=== PATIENT | female | born 1990 | race American Indian/Alaskan Native ===

== ENCOUNTER 2021-01-17 13:36 | Outpatient (CLI) | payer OTHER ==
[2021-01-17 18:01] VITALS: BP 133/66
== END 2021-01-17 17:01 | disposition home or self-care (01) ==
LOC: LAB 13:36 → APU 16:04 → LAB 17:01
PROVIDERS: ATTEND Obstetrics & Gynecology
DX: O26.893 Other specified pregnancy related conditions, third trimester (principal); Z67.41 Type O blood, Rh negative; Z3A.28 28 weeks gestation of pregnancy
CPT/HCPCS: 59025; 86850; 86900; 86901; 96372; J2790

== ENCOUNTER 2021-03-23 19:11 | Inpatient (IN) | payer OTHER ==
[2021-03-23] MEDS ORDERED: FAMOTIDINE 20 MG/2 ML INJ IV SCH (20:41)
[2021-03-23] MEDS ORDERED: METOCLOPRAMIDE 10 MG/2 ML INJ IV SCH (20:41)
[2021-03-23] MEDS ORDERED: BICITRA ORAL LIQD 30ML PO SCH (20:41)
[2021-03-23] MEDS ORDERED: LACTATED RINGERS 1,000 ML IV SCH (20:45)
[2021-03-23] MEDS ORDERED: TERBUTALINE 1 MG/1 ML INJ SUB-Q ONE (21:00)
[2021-03-23] MEDS ORDERED: OXYTOCIN DRIP 30 UNITS/500 ML BAG IV SCH ×2 (21:00→23:45)
[2021-03-23] MEDS ORDERED: ceFAZolin/Water 2 GM/20 ML 2 GM/20 ML SYRINGE IV NR (21:00)
[2021-03-23 21:01] LABS: Basophils % (Auto) 0.5 % (0.0-1.8); Eosinophils # (Auto) 0.1 K/mm3 (0.0-0.4); Eosinophils % (Auto) 1.3 % (0.0-4.3); Hematocrit 35.4 % (30.3-42.9); Hemoglobin 11.9 gm/dl (10.1-14.3); Lymphocytes # (Auto) 1.7 K/mm3 (1.2-5.4); Lymphocytes % (Auto) 21.7 % (13.4-35.0); Mean Corpuscular HGB Conc 34 % (30-34); Mean Corpuscular Volume 89 fl (79-97); Monocytes # (Auto) 0.9 K/mm3 (0.0-0.8); Monocytes % (Auto) 11.7 % (0.0-7.3); Platelet Count 175 K/mm3 (140-440); Red Blood Count 3.99 M/mm3 (3.65-5.03); Red Cell Distribution Width 14.5 % (13.2-15.2)
[2021-03-23 21:04] LABS: Amphetamine Screen,Urine Negative; Benzodiazepines Screen,Urine Negative; Cannabinoid Screen,Urine Negative; Cocaine Screen,Urine Negative; Methadone Screen,Urine Negative; Opiate Screen,Urine Negative
--- NOTE | 2021-03-23 21:09 | Anesthesia Day of Surgery ---
Anesthesia Day of Surgery - Day of Surgery Patient Examined: Yes Patient H&P Reviewed: Yes Patient is NPO: No (Dr Pavon wishes to preceed secondary to thick meconium. Last meal 1900) Beta Blockers: No Cardiac Clearance: No Pulmonary Clearance: No Benja's Test: Negative
--- NOTE | 2021-03-23 21:12 | Anesthesia Consultation ---
Anesthesia Consult and Med Hx Date of service: 03/23/21 - Airway Anesthetic Teeth Evaluation: Good ROM Head & Neck: Adequate Mental/Hyoid Distance: Adequate Mallampati Class: Class II Intubation Access Assessment: Probably Good - Pulmonary Exam CTA: Yes - Cardiac Exam Cardiac Exam: RRR - Pre-Operative Health Status ASA Pre-Surgery Classification: ASA3, Emergency Proposed Anesthetic Plan: Spinal - Pulmonary Hx Smoking: No Hx Asthma: No Hx Respiratory Symptoms: No SOB: No COPD: No Home Oxygen Therapy: No Hx Pneumonia: No Hx Sleep Apnea: No - Cardiovascular System Hx Hypertension: No Hx Coronary Artery Disease: No Hx Heart Attack/AMI: No Hx Angina: No Hx Percutaneous Transluminal Coronary Angioplasty (PTCA): No Hx Cardia Arrhythmia: No Hx Pacemaker: No Hx Internal Defibrillator: No Hx Valvular Heart Disease: No Hx Heart Murmur: No Hx Peripheral Vascular Disease: No - Central Nervous System Hx Neuromuscular Disorder: No Hx Seizures: No CVA: No Hx Back Pain: Yes Hx Psychiatric Problems: No - Gastrointestinal Hx Ulcer: No Hx Gastroesophageal Reflux Disease: Yes - Endocrine Hx Renal Disease: No Hx End Stage Renal Disease: No Hx Cirrhosis: No Hx Liver Disease: No Hx Insulin Dependent Diabetes: No Hx Non-Insulin Dependent Diabetes: Yes (gestational on metformin) Hx Thyroid Disease: No Hx Hypothyroidism: No Hx Hyperthyroidism: No - Hematic Hx Anemia: No Hx Sickle Cell Disease: No - Other Systems Hx Alcohol Use: No Hx Substance Use: No Hx Cancer: No Hx Obesity: Yes
[2021-03-23] MEDS ORDERED: NALOXONE 0.4 MG/1 ML INJ IV PRN ×2 (21:15→23:41)
[2021-03-23] MEDS ORDERED: ONDANSETRON 4 MG/2 ML INJ IV PRN (21:15)
[2021-03-23] MEDS ORDERED: HYDROmorphone 1 MG/1 ML INJ IV PRN ×2 (21:15)
[2021-03-23] MEDS ORDERED: ONDANSETRON 4 MG/2 ML INJ IV ONE (22:06)
[2021-03-23] MEDS ORDERED: PHENYLEPHRINE/NS 1,000 MCG/10 ML SYRINGE (OR USE) IV ONE (22:24)
[2021-03-23] MEDS ORDERED: SODIUM CHLORIDE 0.9% 500 ML 500 ML ONE (22:31)
[2021-03-23] MEDS: KETOROLAC 30 MG/1 ML INJ IV PRN (23:00)
[2021-03-23] MEDS ORDERED: KETOROLAC 30 MG/1 ML INJ ONE (23:00)
[2021-03-23] MEDS ORDERED: SODIUM CHLORIDE 0.9% 500 ML IVPB IV ONE (23:15)
--- NOTE | 2021-03-23 23:33 | History and Physical Report ---
History of Present Illness Date of examination: 03/23/21 Date of admission: 03/23/21 19:11 Chief complaint: My water broke History of present illness: Patient is a 30-year-old 3 para 2 with history of previous section who presents with spontaneous ruptured membranes at 37 weeks and 2 days. Her EDC is 04/11/2021. Amniotic fluid is filled with meconium. The patient's course was complicated by gestational diabetes poorly controlled. Her GBS is unknown. She is HSV-2 positive. Patient initiated care in the first trimester. To the record patient had only moderate compliance with checking her blood sugars after the diagnosis of gestational diabetes, however she met the criteria for it Past History Past Medical History: no pertinent history Past Surgical History: section Family/Genetic History: none Social history: - Obstetrical History Expected Date of Delivery: 04/11/21 Actual Gestation: 37 Week(s) 2 Day(s) : 5 Para: 2 Spontaneous Abortions: 2 Number of Living Children: 2 Medications and Allergies Allergies Allergy/AdvReac Type Severity Reaction Status Date / Time No Known Allergies Allergy Unverified 01/17/21 13:39 Home Medications Medication Instructions Recorded Confirmed Last Taken Type Valacyclovir HCl [Valtrex] 1,000 mg PO DAILY 03/23/21 03/23/21 Unknown History metFORMIN XR [Glucophage XR] 500 mg PO BID 03/23/21 03/23/21 Unknown History Active Meds: Active Medications Citric Acid/Sodium Citrate (Bicitra Oral Liqd 30ml) 30 ml PO ONCE SHANTANU Stop: 03/24/21 20:40 Famotidine (Famotidine 20 Mg/2 Ml Inj) 20 mg IV ONCE SHANTANU Stop: 03/24/21 20:40 Hydromorphone HCl (Hydromorphone 1 Mg/1 Ml Inj) 0.5 mg IV Q5M PRN PRN Reason: BREAK Stop: 03/24/21 05:34 Hydromorphone HCl (Hydromorphone 1 Mg/1 Ml Inj) 0.5 mg IV Q4H PRN PRN Reason: breakthrough pain > 7/10 Lactated Ringer's (Lactated Ringers) 1,000 mls @ 2,250 mls/hr IV PREOP SHANTANU Stop: 03/24/21 21:12 Oxytocin/Sodium Chloride (Pitocin/Ns 30 Unit/500ml) 30 units in 500 mls @ 0 mls/hr IV TITR SHANTANU; Protocol Cefazolin Sodium (Ancef/Sterile Water 2 Gm/20 Ml) 2 gm in 20 mls @ 80 mls/hr IV PREOP NR; Protocol Stop: 03/24/21 20:59 Metoclopramide HCl (Metoclopramide 10 Mg/2 Ml Inj) 10 mg IV ONCE SHANTANU Stop: 03/24/21 20:40 Naloxone HCl (Naloxone 0.4 Mg/1 Ml Inj) 0.2 mg IV Q2MIN PRN PRN Reason: Res Rate </= 8 or 02 SAT < 92% Ondansetron HCl (Ondansetron 4 Mg/2 Ml Inj) 4 mg IV Q8H PRN PRN Reason: Nausea And Vomiting Sodium Chloride (Sodium Chloride 0.9% 10 Ml Flush Syringe) 10 ml IV PRN NR Stop: 03/24/21 21:59 Review of Systems All systems: negative Genitourinary: leakage of fluid, pelvic pain, contractions - Vital Signs Vital signs: Vital Signs Pulse BP 85 121/70 03/23/21 19:36 03/23/21 19:36 Temp Pulse Resp BP Pulse Ox 99.5 F 85 12 121/70 03/23/21 19:37 03/23/21 19:37 03/23/21 19:37 03/23/21 19:36 - Physical Exam Breasts: Cardiovascular: Regular rate, Normal S1, Normal S2 Lungs: Positive: Clear to auscultation, Normal air movement Abdomen: Positive: normal appearance, soft, normal bowel sounds. Negative: distention, tenderness Genitourinary (Female): Positive: normal external genitalia, normal perenium Vulva: both: normal Vagina: Positive: normal moisture. Negative: discharge Cervix: Negative: lesion, discharge Uterus: Positive: normal size, normal contour Adnexa: both: normal Anus/Rectum: Positive: normal perianal skin, heme negative. Negative: rectal mass, hemorrhoids Extremities: Deep Tendon Reflex Grade: Normal +2 - Obstetrical FHR: auscultation normal Cervical Dilatation: 2 Cervical Effacement Percentage: 50 station: -2 Uterine Contraction Pattern: Regular Uterine Tone Measurement Phase: Contraction Uterine Contraction Intensity: Mild Results Result Diagrams: 03/23/21 20:30 Abnormal lab results 07/25/21 Range/Units 20:30 [place] % (Auto) 11.7 H (0.0-7.3) % [place] # (Auto) 0.9 H (0.0-0.8) K/mm3 All other labs normal. Assessment and Plan IUP at 37-2/7 weeks with spontaneous rupture of membrane and previous section. Plan for repeat section. Consent signed and placed on chart. Will proceed as above
--- NOTE | 2021-03-23 23:38 | Procedure Note ---
OB Delivery Note - Delivery Date of Delivery: 03/23/21 Surgeon: AMAYA TRINH - Section Preop diagnosis: repeat Postop diagnosis: same section procedure: repeat low transverse Disposition: PACU Complications: none Narrative: See op report - Infant A at 1 minute: 8 at 5 minutes: 9 Infant Gender: Female (3320g 7lbs 5 oz)
[2021-03-23] MEDS ORDERED: SIMETHICONE 80 MG CHEW TAB PO PRN (23:41)
[2021-03-23] MEDS ORDERED: MORPHINE 2 MG/1 ML INJ IV PRN (23:41)
[2021-03-23] MEDS ORDERED: WITCH HAZEL/ GLYCERIN PAD TP PRN (23:41)
[2021-03-23] MEDS ORDERED: LANOLIN/ZINC/DIMETHICONE (LANSINOH) 7 GM TP PRN (23:41)
--- NOTE | 2021-03-23 23:41 | Operative Report ---
Operative Report Operative Report: Preoperative diagnosis: Intrauterine at 37 and 2 7 weeks 2. Previous x1 3. Spontaneous rupture of membranes with meconium Postoperative diagnosis: Same Procedure: Repeat low transverse section Surgeon: Dr. Maribell Pavon EBL: 625 Urine output: 350 mL IV fluids: 1600 mL Findings: Viable female in the vertex presentation weight 7 lbs. 5 oz. 3320g Apgars 8 and 9. Thin lower uterine segment with several venous si nuses, otherwise normal pelvic anatomy Specimens: Placenta Complications: None Procedure: The patient was admitted to the OR with IV running and in place. She was properly identified as herself. She was given spinal anesthesia in the OR without difficulty. She was placed in the dorsal supine position with a leftward tilt. A Aviles catheter was inserted. She was then prepped and draped in the normal sterile fashion. An Allis test was used to confirm adequate anesthesia. Once confirmed, the incision was made with the scalpel and carried to the underlying fascia using the scalpel and the Bovie. The fascia was incised in the midline and incision was extended bilaterally using the curved Lorenz scissors. The fascia was then dissected from the underlying rectus muscles in a series of sharp and blunt dissection using the Lorenz scissors. Muscles were in the in the midline sharply using Metzenbaum scissors and the peritoneum was entered into bluntly using the surgeon's fingers. A bladder blade was then placed into the incision to protect the bladder. Following this the bladder flap was created. Hysterotomy incision was then made in the scalpel. Upon uterine entry, the amniotic sac was ruptured for clear fluid. The infant was then delivered without difficulty. Her mouth and nose were suctioned on the field. The cord was clamped and cut and he was handed to the [facility] NICU personnel. The uterus was then exteriorized and cleared of all clots and debris. The hysterotomy incision was then closed in a running locked fashion using 0 Vicryl. The abdomen was then copiously irrigated with warm normal saline. Following this the uterus was replaced into the abdominal cavity. At this point the muscles were reapproximated in the midline using individual sutures of 0 Vicryl. Following this the fascia was closed in a running fashion using 0 Vicryl. Tissue was then copiously irrigated. The skin was closed in a running fashion using 3-0 Monocryl. The sponge lap needle and instrument counts were correct 2. The patient tolerated the procedure well. She was taken to recovery in stable condition.
--- NOTE | 2021-03-23 23:52 | Progress Note ---
Spinal Anesthesia Block - Spinal Anesthesia Block Start Time: 22:21 Stop Time: 22:28 Performed by:: ONEIDA COLLINS Procedure: Patient IDed, H&P reviewed, all questions and concerns were answered, and consent was signed. Timeout was performed at bedside. Patient in sitting position. Sterile prep and drape was performed. [3] ml of 1% lidocaine skin wheal at L[3]- L [4]. Needle introducer advanced. 25 gauge spinal needle advanced. Clear, free flowing CSF. negative blood, negative paresthesia. Spinal dose given. All needles removed. Patient tolerated procedure.
--- NOTE | 2021-03-23 23:56 | Progress Note ---
Regional Anesthesia Block - Regional Anesthesia Block Start Time: 23:47 Stop Time: 23:54 Performed By:: ONEIDA COLLINS Procedure: Patient consented for TAP block for post surgical pain management. Patient identified, monitors placed, and time out performed. TAP identified bilaterally via ultrasound. Skin prepped bilaterally with [chlorhexidine] and [22g stimuplex] needle advanced to the TAP. [Marcaine 0.25% 30ml] injected under ultrasound guidance on the [left] side. [Marcaine 0.25% 30ml] injected under ultrasound guidance on the [right] side. Negative aspiration every 5mL, No change in heart rate or rhythm. Patient tolerated the procedure well. No apparent complications seen.
[2021-03-24] MEDS ORDERED: LACTATED RINGERS 1,000 ML IV SCH (02:15)
[2021-03-24] MEDS: KETOROLAC 30 MG/1 ML INJ IV PRN (06:32)
[2021-03-24] MEDS: PRENATAL VIT27-FE FUMARATE-FOLIC ACID VIT TAB PO SCH (10:29)
[2021-03-24] MEDS: oxyCODONE /ACETAMINOPHEN 5-325MG TAB PO PRN ×3 (10:29→23:00)
[2021-03-24] MEDS: FERROUS SULFATE 325 MG TAB PO SCH (10:29)
[2021-03-24] MEDS: IBUPROFEN 800 MG TAB PO PRN ×2 (13:03→18:51)
[2021-03-24 13:05] LABS: Hematocrit 34.7 % (30.3-42.9); Hemoglobin 11.5 gm/dl (10.1-14.3)
--- NOTE | 2021-03-24 13:23 | Progress Note ---
Assessment and Plan A: ~ 12 hours s/p repeat at term P: Routine postop care Subjective - Subjective Date of service: 03/24/21 Principal diagnosis: s/p repeat Interval history: Late entry. No unusual complaints Patient reports: appetite normal, pain well controlled, flatus, no voiding normally (julian ), no bowel movement [place]: doing well Objective - Vital Signs Latest vital signs: Vital Signs Temp Pulse Resp BP Pulse Ox 03/24/21 08:08 98.3 F 65 18 100/58 98 03/24/21 07:02 18 03/24/21 06:32 18 03/24/21 05:21 98.2 F 61 18 122/78 99 03/24/21 01:24 97.3 F L 62 20 134/77 98 03/24/21 00:35 60 14 130/78 99 03/24/21 00:20 63 14 126/81 100 03/24/21 00:05 62 15 122/73 100 03/23/21 23:50 65 18 124/80 100 03/23/21 23:45 66 19 122/81 100 03/23/21 23:40 97.5 F L 66 18 128/76 100 03/23/21 19:37 99.5 F 85 12 03/23/21 19:36 85 121/70 Intake and Output 03/23/21 03/24/21 03/24/21 22:59 06:59 14:59 Intake Total 250 680 Output Total 850 Balance 250 -170 Intake: IV 250 200 Intake, Free Water 480 Output: Urine 850 Indwelling Catheter 500 Other: Total, Output Amount 500 Weight 94.801 kg - Exam Breasts: Present: deferred Abdomen: Present: soft Extremities: Present: normal Incision: Present: dressed - Labs Labs: Abnormal lab results 03/23/21 03/24/21 Range/Units 20:30 10:58 [place] % (Auto) 11.7 H (0.0-7.3) % [place] # (Auto) 0.9 H (0.0-0.8) K/mm3 POC Glucose 127 H (70-105) mg/dL
--- NOTE | 2021-03-24 15:05 | Post Anesthesia Evaluation ---
- Post Anesthesia Evaluation Patient Participated: Yes Airway Patent: Yes Stable Respiratory Function: Yes Nausea/Vomiting: No Temp > 96.8F: Yes Pain Manageable: Yes Adequeate Hydration: Yes Anesthesia Complications: No Block Receding Appropriately: Yes Patient on Ventilator: No
--- NOTE | 2021-03-25 08:22 | Progress Note ---
Assessment and Plan A: POD #2 s/p Repeat C/S Pain poorly controlled No bowel movement as of yet P: Continue with routine care Analgesics will be administered this morning Initiate stool softener Subjective - Subjective Date of service: 03/25/21 Principal diagnosis: s/p repeat Interval history: POD #2 s/p Repeat C/S. Patient reports moderate pain, but states with medication her pain is well controlled. +flatus, decreasing lochia and ambulation is unassisted but associated with moderate discomfort. Patient has not had a bowel movement. Patient reports: voiding normally, flatus, pain poorly controlled, ambulating normally, no bowel movement [place]: doing well Objective - Vital Signs Latest vital signs: Vital Signs Temp Pulse Resp BP Pulse Ox 03/25/21 01:30 97.8 F 71 20 103/64 99 03/24/21 23:00 18 03/24/21 21:52 98.0 F 70 18 113/61 100 03/24/21 16:59 97.8 F 73 20 98/43 99 03/24/21 11:23 98.3 F 67 18 111/65 99 Intake and Output 03/24/21 03/25/21 03/25/21 23:59 07:59 15:59 Intake Total 480 240 Output Total 1600 Balance -1120 240 Intake: Oral 360 Intake, Free Water 120 240 Output: Urine 1600 Void 1600 Other: Total, Intake Amount 360 Total, Output Amount 700 # Voids Void 1 2 - Labs Labs: Abnormal lab results 03/24/21 Range/Units 10:58 POC Glucose 127 H (70-105) mg/dL
[2021-03-25] MEDS: FERROUS SULFATE 325 MG TAB PO SCH (09:07)
[2021-03-25] MEDS: PRENATAL VIT27-FE FUMARATE-FOLIC ACID VIT TAB PO SCH (09:08)
[2021-03-25] MEDS: MAGNESIUM HYDROXIDE (MOM) ORAL LIQD UDC PO PRN ×2 (09:08→22:01)
[2021-03-25] MEDS: oxyCODONE /ACETAMINOPHEN 5-325MG TAB PO PRN ×2 (09:08→18:01)
[2021-03-25] MEDS: IBUPROFEN 800 MG TAB PO PRN ×2 (13:25→22:01)
--- NOTE | 2021-03-25 13:27 | Consultation ---
History of Present Illness - Reason for Consult Consult date: 03/25/21 Reason for consult: edingbugh score of 14 - Chief Complaint Chief complaint: My dre broadán - History of Present Psychiatric Illness PER NOTE: Patient is a 30-year-old 3 para 2 with history of previous section who presents with spontaneous ruptured membranes at 37 weeks and 2 days. Her EDC is 04/11/2021. Amniotic fluid is filled with meconium. The patient's course was complicated by gestational diabetes poorly controlled. Her GBS is unknown. She is HSV-2 positive. Patient initiated care in the first trimester. To the record patient had only moderate compliance with checking her blood sugars after the diagnosis of gestational diabetes, however she met the criteria for it. Corin Garcia is a 30 year old female with no prior psychiatric history and she is naive to psychotropic medications who was consulted for Holiday score of 14 post child . In my interview with the patient, she states that she is new to the [facility] and that she was not sure of what she was checking. The patient denies being depressed or having excessive worries. She denies any sy mptom of depression. She denies any current suicidal /homicidal ideation and denies hallucinations. PAST PSYCHIATRIC HISTORY Diagnoses: Denies Suicide attempts or Self-harm behavior: Denies Prior psychiatric hospitalizations: Denies Substance Abuse history: Denies Previous psychiatric medications tried: Denied Outpatient treatment: Denied SOCIAL HISTORY Marital Status: Living Arrangements: Lives with and children Employment Status: unknown Access to guns/weapons: Denied Education: College History of Abuse: Denied Legal History: None reported REVIEW OF SYSTEMS Constitutional: Negative for weight loss ENT: Negative for stridor Respiratory: Negative for cough or hemoptysis All other systems reviewed and are negative MENTAL STATUS EXAMINATION General Appearance and Behavior: Age appropriate, dressed appropriately, calm and cooperative Cooperation: Participating Psychomotor Behavior: psychomotor normal Mood: calm Affect and affective range: Congruent with stated mood Thought Process: goal directed Thought Content: with normal limits Speech: Normal volume, Regular rate and rhythm, Intellectual Functioning: Average Suicidal Ideation: Denied Homicidal Ideation: Denied Hallucinations: Denied Delusions: None elicited Impulse Control: Unimpaired Insight and Judgment: Limited insight and judgment, Memory: Normal Attention: Undivided Orientation: Alert, oriented Assessment and Plan (1) Mental Health Assessment Treatment plan Risks, benefits and alternatives of medications discussed with the patient, questions answered and consent obtained from patient. PSYCHOTHERAPY: Supportive psychotherapy provided MEDICAL: Per primary team DELIRIUM PRECAUTIONS: Please re-orient patient frequently, keep lights on during the day, and minimize benzodiazepines and opiates as these medications could worsen patient's confusion. IT ASSOCIATE: Per medical team DISPOSITION: Do not recommend acute inpatient psychiatric hospitalization at this time. Patient was informed that if suicidal/homicidal ideation/withdrawal symptoms arise, He should immediately seek for emergent assistance including but not limited to crisis hot line and emergency room. The intelligence group supervisor to give the patient resources for a fpc, transportation pass, CBT, med management and alcohol rehab programs The patient to follow up with outpatient psych in 7 to 14 days upon discharge The patient to abstain from alcohol use FOLLOW-UP: Will sign off Thank you for the consult. Please contact with any questions and/or concerns. Case staffed with Dr. Thomson Medications and Allergies Allergies Allergy/AdvReac Type Severity Reaction Status Date / Time No Known Allergies Allergy Verified 03/24/21 06:30 Home Medications Medication Instructions Recorded Confirmed Last Taken Type Valacyclovir HCl [Valtrex] 1,000 mg PO DAILY 03/23/21 03/23/21 Unknown History metFORMIN XR [Glucophage XR] 500 mg PO BID 03/23/21 03/23/21 Unknown History Active Meds: Active Medications Ferrous Sulfate (Ferrous Sulfate 325 Mg Tab) 325 mg PO QDAY SHANTANU Last Admin: 03/25/21 09:07 Dose: 325 mg Documented by: Hydromorphone HCl (Hydromorphone 1 Mg/1 Ml Inj) 0.5 mg IV Q4H PRN PRN Reason: breakthrough pain > 7/10 Oxytocin/Sodium Chloride (Pitocin/Ns 30 Unit/500ml) 30 units in 500 mls @ 40 mls/hr IV TITR SHANTANU; Protocol Lactated Ringer's (Lactated Ringers) 1,000 mls @ 125 mls/hr IV DIRECT SHANTANU Last Admin: 03/24/21 05:45 Dose: 125 mls/hr Documented by: Ibuprofen (Ibuprofen 800 Mg Tab) 800 mg PO Q6H PRN PRN Reason: Pain, Moderate (4-6) Last Admin: 03/24/21 18:51 Dose: 800 mg Documented by: Ketorolac Tromethamine (Ketorolac 30 Mg/1 Ml Inj) 30 mg IV Q6H PRN PRN Reason: Pain, Moderate (4-6) Stop: 03/28/21 23:40 Last Admin: 03/24/21 06:32 Dose: 30 mg Documented by: Magnesium Hydroxide (Magnesium Hydroxide (Mom) Oral Liqd Udc) 30 ml PO QHS PRN PRN Reason: Constip Unrelieved By Senna Last Admin: 03/25/21 09:08 Dose: 30 ml Documented by: Morphine Sulfate (Morphine 2 Mg/1 Ml Inj) 2 mg IV Q4H PRN PRN Reason: Pain, Moderate (4-6) Multi-Ingredient Ointment (Lanolin/Zinc/Dimethicone (Lansinoh) 7 Gm) 1 applic TP PRN PRN PRN Reason: dryness/cracking Multivitamins/Iron/Calcium ( [id number] Fumarate-Folic Acid Vit Tab) 1 each PO QDAY SHANTANU Last Admin: 03/25/21 09:08 Dose: 1 each Documented by: Naloxone HCl (Naloxone 0.4 Mg/1 Ml Inj) 0.2 mg IV Q2MIN PRN PRN Reason: Res Rate </= 8 or 02 SAT < 92% Naloxone HCl (Naloxone 0.4 Mg/1 Ml Inj) 0.1 mg IV Q2MIN PRN PRN Reason: Res Rate </= 8 or 02 SAT < 92% Ondansetron HCl (Ondansetron 4 Mg/2 Ml Inj) 4 mg IV Q8H PRN PRN Reason: Nausea And Vomiting Oxycodone/Acetaminophen (Oxycodone /Acetaminophen 5-325mg Tab) 2 tab PO Q6H PRN PRN Reason: Pain, Moderate (4-6) Last Admin: 03/25/21 09:08 Dose: 2 tab Documented by: Simethicone (Simethicone 80 Mg Chew Tab) 80 mg PO Q6H PRN PRN Reason: Gas pain Witch Fátima/Glycerin (Witch Fátima/ Glycerin Pad) 1 each TP PRN PRN PRN Reason: Hemorrhoids/cleansing/soothing Mental Status Exam - Vital signs Last Vital Signs Temp 98.2 F 03/25/21 08:40 Pulse 76 03/25/21 08:40 Resp 16 03/25/21 09:08 BP 124/80 03/25/21 08:40 Pulse Ox 100 03/25/21 09:21 Results Result Diagrams: 03/24/21 12:42 All other labs normal.
[2021-03-26] MEDS: oxyCODONE /ACETAMINOPHEN 5-325MG TAB PO PRN (06:27)
--- NOTE | 2021-03-26 08:19 | Discharge Summary ---
Providers - Providers Date of Admission: 03/23/21 19:11 Date of discharge: 03/26/21 Attending physician: COY WELCH 03/25/21 08:00 psychiatry consult [Consult to Mental Health] [CONS] Routine Reason For Exam: edinburgh score 14 Primary care physician: COY WELCH Hospitalization Reason for admission: section Delivery: Procedure: repeat low transverse Episiotomy: none Laceration: none Incision: dry, intact (no shadow drainage or bleeding noted, steri-strips intact) complications: none Discharge diagnosis: IUP at term delivered [place] baby: female Hospital course: Patient is a 30-year-old 3 para 2 with history of previous section who presents with spontaneous ruptured membranes at 37 weeks and 2 days. Her EDC is 04/11/2021. Amniotic fluid is filled with meconium. The patient's course was complicated by gestational diabetes poorly controlled. Her GBS is unknown. She is HSV-2 positive. Patient initiated care in the first trimester. To the record patient had only moderate compliance with checking her blood sugars after the diagnosis of gestational diabetes, however she met the criteria for it. Condition at discharge: Good Disposition: DC-01 TO HOME OR SELFCARE - Discharge Diagnoses (1) Status post repeat low transverse section Status: Acute Plan - Discharge Medications Prescriptions: Ibuprofen [Motrin 800 MG tab] 800 mg PO Q8HR PRN 7 Days #21 tablet PRN Reason: Pain, Moderate (4-6) - Provider Discharge Summary Activity: routine, no sex for 6 weeks, no heavy lifting 4 weeks, no strenuous exercise Diet: other Instructions: other Additional instructions: [] Smoking cessation referral if applicable(refer to patient education folder for contact #) [] Refer to [facility] Booklet Call your doctor immediately for: * Fever > 100.5 * Heavy vaginal bleeding ( >1 pad per hour) * Severe persistent headache * Shortness of breath * Reddened, hot, painful area to leg or breast * Drainage or odor from incision. * Keep incision clean and dry at all times and follow doctor's instructions regarding bathing/showering * F/U with out-patient psych in 7-14 days - Follow up plan Follow up: COY WELCH MD [Primary Care Provider] - 7 Days
[2021-03-26] MEDS: PRENATAL VIT27-FE FUMARATE-FOLIC ACID VIT TAB PO SCH (09:48)
[2021-03-26] MEDS: FERROUS SULFATE 325 MG TAB PO SCH (09:48)
[2021-03-26] MEDS: IBUPROFEN 800 MG TAB PO PRN (11:47)
[2021-03-26 14:21] VITALS: BP 124/77
== END 2021-03-26 14:30 | disposition home or self-care (01) | DRG 787 ==
LOC: APU 19:11 → OB 03-24 01:47
PROVIDERS: ADMIT Obstetrics & Gynecology; ATTEND Obstetrics & Gynecology
PROC: 10D00Z1 Extraction of Products of Conception, Low, Open Approach (ICD-10-PCS; principal; 2021-03-23)
DX: O77.0 Labor and delivery complicated by meconium in amniotic fluid (principal); O98.52 Other viral diseases complicating childbirth; O34.211 Maternal care for low transverse scar from previous cesarean delivery; B00.9 Herpesviral infection, unspecified; Z3A.37 37 weeks gestation of pregnancy; Z37.0 Single live birth; Z20.822 Contact with and (suspected) exposure to COVID-19
CPT/HCPCS: 36415; 59025; 80307; 82962; 85014; 85018; 85025; 85461; 86592; 86850; 86870; 86900; 86901; 88307; 99211; G0378; G0463; J1885; J2370; J2405; J2790; J3490; J7040; J7120; U0003

== ENCOUNTER 2021-04-01 08:01 | Emergency (ER) | payer OTHER ==
[2021-04-01 08:43] VITALS: BP 135/75
== END 2021-04-01 11:07 ==
LOC: ED 08:01
DX: R52 Pain, unspecified (principal); Z53.21 Procedure and treatment not carried out due to patient leaving prior to being seen by health care provider